=== PATIENT | male | born 1990 | race Caucasian/White ===

== ENCOUNTER 2024-03-01 10:14 | Emergency (ER) | payer OTHER, SELFPAY ==
[2024-03-01 10:16] VITALS: BP 119/84; PULSE 84; RESP 18; TEMP 36.6; O2SAT 96; BMI 34.1
--- NOTE | 2024-03-01 11:24 | ED.VIS.DENTA ---
HPI History of Present Illness Chief Complaint: Dental Informant: patient Onset/Context/Timing Onset: Days Context: Gradual Onset Timing: Continuous Current Severity: Moderate Maximum Severity: Moderate Associated Symptoms Assocated Symptom - Dental: Negative for fever, jaw swelling, face swelling, cold sensitivity or hot sensitivity Narrative Narrative: Healthy 33-year-old male no seen past medical history. Status post right lower jaw dental extraction on Wednesday at [facility]. Patient has had more dental pain. Dentist referred him to the emergency department. He was seen at [facility] earlier today and written for [facility]. He is already on amoxicillin. Prior similar symptoms: Yes Recent Illness/Hospitalization: No PFSH PFSH Medical History no medical history no medical history Allergy/AdvReac Type Severity Reaction Status Date / Time No Known Allergies Allergy Verified 03/01/24 10:15 Social History Smoking Status: Never smoker ROS ROS ED ROS Narrative Denies recent illness. Review of Systems ROS Unobtainable: Denies due to encephalopathy Constitutional Constitutional ED: Denies chills or fever(s) Eyes Eyes: Denies blurry vision ENT ENT ED: Denies ear pain Cardiovascular Cardiovascular: Denies chest pain or palpitations Respiratory/Chest Respiratory/Chest: Denies cough or dyspnea Gastrointestinal Gastrointestinal: Denies abdominal pain Genitourinary Genitourinary ED: Denies dysuria or hematuria Musculoskeletal Musculoskeletal: Denies arthralgias or back pain Integumentary Denies abscess or Abrasions Neurologic Neurologic: Denies headache(s) Psychiatric Psychiatric: Denies depression Endocrine Endocrinology: Denies cold intolerance Hematologic/Lymphatic Hematologic/Lymphatic: Denies easy bleeding, easy bruising or lymphadenopathy Allergic/Immunologic Allergic/Immunologic ED: Denies mouth swelling EXAM Physical Exam Narrative Exam Narrative: Well-appearing 33-year-old male. Vital signs stable afebrile. H EENT exam right lower jaw one of his molars has been pulled. Actually site looks really good. There is no significant swelling. No abscess. No bleeding. Sutures appear to be in place. Jaws not swollen. He has no trouble opening closing his mouth. There is no swelling underneath his tongue. Posterior pharynx normal. TMs normal. Neck nontender no lymphadenopathy. Lungs clear to auscultation. Heart regular rhythm no murmur. Chest wall nontender. Abdomen nontender. Back nontender. Moving all 4 extremities. 5/5 motor strength. Normal range of motion. Normal sensation. Neurologically is awake and alert with no focal motor deficits. Normal exam.. Const Vital Signs: 03/01/24 10:16 Temperature 97.8 F Temperature Source Temporal Pulse Rate 84 Respiratory Rate 18 Blood Pressure 119/84 H Blood Pressure Mean 95 Pulse Ox 96 Oxygen Delivery Method Room Air Positive well nourished and well developed; Negative for cachectic, contractures or unkempt General Appearance ED: well developed and NAD; Negative for unkempt, cachectic, contractures, pallor or other Nutritional Appearance: Negative for cachectic HEENT Denies other HEENT Narrative: Well-appearing right lower jaw recent molar dental extraction. Healing nicely. No significant swelling. No abscess. No trismus. No facial or jaw swelling. No trouble opening or closing his mouth. No trouble swallowing or breathing. Negative for other Mouth ED: Yes oral and palatal mucosa normal, Yes lips normal, Yes tongue normal, Yes salivary gland normal, No mouth trauma, No oral and palatal mucosa abnormal and No salivary gland abnormal Mouth: oral and palatal mucosa normal, lips normal, tongue normal, salivary gland normal, No mouth trauma, No oral and palatal mucosa abnormal and No salivary gland abnormal Throat: posterior oropharynx normal Eyes PERRL and EOMs intact bilaterally General Eye ED: Negative for pale conjunctiva or scleral icterus Neck no lymphadenopathy, supple and no JVD General: normal visual inspection and anterior neck swelling; Negative for tenderness or submandibular swelling Lymph Lymphatic: no lymphadenopathy noted Chest Wall inspection of chest normal and palpation of chest normal Chest: Negative for other Resp normal respiratory effort, no retractions and clear to auscultation bilaterally Cardio regular rate, regular rhythm, S1 normal heart sound, S2 normal heart sound and no murmurs Jugular Venous Distention: Negative for other Palpation: Negative for palpable S3 Rate: Negative for bradycardia Rhythm: Negative for abnormal rhythm GI normal to inspection, nondistended, normoactive bowel sounds, non-tender, non-distended and no masses Palpation: soft Back/Spine no CVA tenderness General Back: Negative for CVA tenderness Cervical Spine: Negative for other Extremity normal to inspection and no joint enlargement General Extremety ED: Negative for edema General Extremity: Negative for edema Neuro oriented x3, CN's II-XII intact bilaterally, moves all extremities, no focal motor deficits and no sensory deficits noted Sensorium / Orientation: alert, oriented to person, oriented to place and oriented to time; Negative for orientation impaired Motor Exam: strength 5/5 throughout; Negative for general weakness or strength abnormal Psych mental status grossly normal Appearance: Negative for unkempt Attitude: No agitated Mood & Affect: Negative for depressed or tearful Skin no rashes or lesions noted and no wounds General Skin Exam: Negative for pallor MDM MDM MDM Narrative Medical decision making narrative: 33-year-old status post dental extraction with dental pain. He is already on antibiotic amoxicillin. Area looks like it is healing appropriately there is no abscess or significant signs of infection currently. He was at another ER in the last 24 hours running for [employer]. He can use Tylenol and Motrin for pain and the [place] as needed. He does not need any workup or any further prescriptions. He is comfortable with the plan. He just needed reassured. He will follow-up with his dentist as needed. Discharge Plan Triage Chief Complaint: Dental ED Provider: Jimmy Cruz Dx/Rx/DC Orders Clinical Impression: Pain, dental Instructions: ED Dental Pain Primary Care Provider: [facility] Referrals: [facility] [Primary Care Provider] - Activity Restrictions/Additional Instructions: Motrin and Tylenol for pain. The [place] you are prescribed at the other emergency department only if needed. Continue your current antibiotic. Follow-up with your dentist as needed. Your tooth is healing nicely. The rest your exam is normal. Print Language: Kinyarwanda Disposition Disposition: Home, Self Care
[2024-03-01 11:39] VITALS: BP 124/68; PULSE 72; RESP 16; TEMP 36.4; O2SAT 99
== END 2024-03-01 11:39 | disposition home or self-care (01) ==
PROVIDERS: Emergency Provider Emergency Medicine; Visit Provider Emergency Medicine
DX: K08.89 Other specified disorders of teeth and supporting structures (principal)
CPT/HCPCS: 99282